=== PATIENT | male | born 1995 | race Asian ===

== ENCOUNTER 2017-09-29 12:07 | Emergency (ER) | payer OTHER ==
[~2017-09-29] VITALS: Ht 177.8 cm; Wt 68.5 kg
[2017-09-29 12:09] VITALS: TEMP 36.5; Ht 177.8 cm; Wt 68.5 kg
[2017-09-29 13:14] VITALS: BP 120/69; PULSE 78; O2SAT 99
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
== END 2017-09-29 13:09 | disposition home or self-care (01) ==
LOC: C.EDB 12:10 → C.EDD 13:09
DX: S80.811A Abrasion, right lower leg, initial encounter (principal); S80.12XA Contusion of left lower leg, initial encounter; M79.1 Myalgia; V47.6XXA Car passenger injured in collision with fixed or stationary object in traffic accident, initial encounter